=== PATIENT | female | born 1955 | race Caucasian/White ===

== ENCOUNTER → 2024-07-29 08:09 | Outpatient (REF) | payer MEDICARE, OTHER, SELFPAY | LOC: MRI 3T 08:09 | PROVIDERS: ATTENDING PHYSICIAN Physician Assistant; FAMILY PHYSICIAN Internal Medicine | DX: M54.50 Low back pain, unspecified (principal) | CPT/HCPCS: 72148 ==

== ENCOUNTER 2024-08-09 07:48 | Emergency (ER) | payer MEDICARE, OTHER, SELFPAY ==
[2024-08-09] VITALS (12 sets, daily range): BP systolic 89–142; BP diastolic 58–84; BMI 24.7
[2024-08-09 08:50] LABS: % Basophils 0.4 % (0-2); % Immature Granulocytes 0.2 % (0-0.5); % Lymphocytes 4.8 % (20.5-51.1); % Monocytes 3.9 % (1.7-9.3); % Neutrophils 89.7 % (42.2-75.2); Absolute Eosinophils 0.1 10^3/uL (0-0.7); Absolute Lymphocytes 0.4 10^3/uL (1.2-3.4); Absolute Monocytes 0.4 10^3/uL (0.1-0.6); Hematocrit 50.7 % (37.0-47.0); Hemoglobin 17.8 g/dL (12.0-16.0); Mean Corp Hgb Conc. 35.1 g/dL (33.0-37.0); Mean Corpuscular Hgb 30.2 pg (27.0-31.0); Mean Corpuscular Volume 86.1 fL (81.0-99.0); Mean Platelet Volume 10.1 fL (7.4-10.4); Nucleated Red Blood Cells % 0 %; Platelet Count 196 10^3/uL (130-400); Red Blood Cell Count 5.89 10^6/uL (4.20-5.40); Red Cell Dist. Width 11.9 % (11.5-14.5)
[2024-08-09 09:03] LABS: ALT (SGPT) 43 U/L (0-35); AST (SGOT) 58 U/L (14-36); Albumin 5.3 g/dl (3.5-5.0); Alkaline Phosphatase 86 U/L (38-126); Blood Urea Nitrogen 22 mg/dl (7-17); Calcium 10.4 mg/dl (8.4-10.2); Carbon Dioxide 18 mmol/L (22-30); Chloride 100 mmol/L (98-107); Glucose 149 mg/dl (70-99); Potassium 4.8 mmol/L (3.5-5.1); Sodium 136 mmol/L (135-145); Total Bilirubin 0.8 mg/dl (0.2-1.3); Total Protein 8.4 g/dl (6.3-8.2); eGFR > 60.00
--- NOTE | 2024-08-09 09:21 | ED.GENMED ---
History of Present Illness
General
Chief Complaint: Abdominal Symptoms
Time Seen by Provider: 08/09/24 08:52
History of Present Illness
History of Present Illness:
68-year-old female presents to the emergency department for evaluation of generalized abdominal pain associated with nausea vomiting diarrhea beginning last night. She notes that she developed sore throat and neck discomfort 3 days ago and was seen
by her primary care physician, tested positive for strep and is on amoxicillin since that time. Was feeling well yesterday however continued with neck pain before the new symptoms develop today. Multiple prior abdominal surgical history including
total colectomy with J-pouch, appendectomy, cholecystectomy. No fevers, no hematemesis or melena
Review of Systems
Review of Systems
Allergies reviewed?: Yes
All Other Systems: ROS reviewed and negative except as documented in HPI and ROS
Phy Exam
Physical Exam
Physical Exam:
GEN: Well appearing, NAD, WDWN
HEENT: Oral mucosa dry, no scleral icterus, negative meningeal signs
Cardiac: Regular rate and rhythm, no murmurs
Lung: No respiratory distress, no tachypnea
MSK: No gross deformity or injuries
Skin: Good color, no pallor or jaundice, no rashes
Neuro: AO x3, moves all extremities freely
Psych: Calm, cooperative
Course
Orders/Labs/Results
Orders:
Orders
08/09/24
Electrocardiogram (*1) Stat
Comment: DONE EMR
08/09/24 08:28
Complete Blood Count/With Diff Urgent
Comprehensive Metabolic Panel Urgent
Lipase Urgent
08/09/24 09:17
0.9% Sodium Chloride 1000 ml [Nss] 1,000 ml IV BOLUS
Ketorolac [Toradol] 15 mg IV NOW STA
Ondansetron Injectable [Zofran] 4 mg IV NOW STA
08/09/24 09:19
CT Abd/Pel (IV only)-DH only Urgent
Comment:
Reason For Exam: diffuse abd pain, N/V
08/09/24 12:03
0.9% Sodium Chloride 1000 ml [Nss] 1,000 ml IV BOLUS
08/09/24 15:06
Acetaminophen [Tylenol] 650 mg PO NOW STA
Abnormal Lab Results
08/09/24
08:28
RBC 5.89 H 10^6/uL
(4.20-5.40)
Hgb 17.8 H g/dL
(12.0-16.0)
Hct 50.7 H %
(37.0-47.0)
Absolute Neuts (auto) 8.0 H 10^3/uL
(1.4-6.5)
Absolute Lymphs (auto) 0.4 L 10^3/uL
(1.2-3.4)
Neutrophils % 89.7 H %
(42.2-75.2)
Lymphocytes % 4.8 L %
(20.5-51.1)
Carbon Dioxide 18 L mmol/L
(22-30)
BUN 22 H mg/dl
(7-17)
Glucose 149 H mg/dl
(70-99)
Calcium 10.4 H mg/dl
(8.4-10.2)
AST 58 H U/L
(14-36)
ALT 43 H U/L
(0-35)
Total Protein 8.4 H g/dl
(6.3-8.2)
Albumin 5.3 H g/dl
(3.5-5.0)
08/09/24 08:28
08/09/24 08:28
Vital Signs
Initial and Last Documented VS:
Initial Vital Signs
Temp Pulse Resp BP Pulse Ox
98.0 F 88 16 142/84 98
08/09/24 08:07 08/09/24 08:07 08/09/24 08:07 08/09/24 08:07 08/09/24 08:07
Last Documented Vital Signs
Temp Pulse Resp BP Pulse Ox
98.0 F 77 22 128/75 95
08/09/24 08:07 08/09/24 15:45 08/09/24 15:45 08/09/24 15:27 08/09/24 15:45
MDM/Problems Addressed
MDM/Problems Addressed:
Likely self-limited viral syndrome, treated with IV fluids and antiemetics in the emergency department with good improvement, discussed supportive care
*Critical Care Note
Total Time (30-74mins, 75-104mins- exclusive of procedures): Not Applicable
ED Attending Note
-
Portions of this chart may have been created with voice recognition software.� Occasional wrong word or��sound alike� substitutions may have occurred due to the inherent limitations of voice recognition software.
Discharge Plan
Departure
Patient Disposition: Home (Routine Discharge)
Date of Disposition: 08/09/24
Time of Disposition: 14:08
Patient with high blood pressure during this ER visit?: No
Discharge Problem:
Gastroenteritis
Instructions: Nausea and Vomiting, Adult (DC)
Prescriptions:
New
ondansetron 4 mg tablet,disintegrating
4 mg PO TIDPRN PRN (Reason: nausea/vomiting) Qty: 10 0RF
Referrals:
Carl Allen MD [Family Provider] -
Interventions
Interventions:
*Risk Screen - Suicide Last Done: 08/09/24 08:07
*General Assessment Last Done: 08/09/24 09:10
*Neglect/Abuse Screening Last Done: 08/09/24 08:07
ED- Fall Risk Assessment Last Done: 08/09/24 09:10
*ED COVID-19 Vaccine History Last Done: 08/09/24 09:10
FU-Nkunzx-Jhxgabuxnk Assessment Last Done: 08/09/24 09:10
Discharge Date and Time
Print Language: GEORGIAN
[2024-08-09] MEDS: NSS 1000 IV ×2 (09:25→12:21)
[2024-08-09] MEDS: ZOFRAN 4 MG IV (09:25)
[2024-08-09] MEDS: TORADOL 15 MG IV (09:25)
[2024-08-09 10:18] LABS: Lipase 75 U/L (23-300)
[2024-08-09] MEDS: TYLENOL 650 MG PO (15:09)
== END 2024-08-09 17:17 | disposition home or self-care (01) ==
LOC: EMR 07:48
PROVIDERS: Emergency Medicine; EMERGENCY PHYSICIAN Emergency Medicine; FAMILY PHYSICIAN Internal Medicine
DX: K52.9 Noninfective gastroenteritis and colitis, unspecified (principal)
CPT/HCPCS: 74177; 80053; 83690; 85025; 93005; 96361; 96374; 96375; 99284; Q9967